=== PATIENT | male | born 1970 | race Caucasian/White ===

== ENCOUNTER → 2021-04-23 14:26 | Outpatient (CLI) | payer BC, SELFPAY ==
--- NOTE | 2021-04-23 14:32 | XR_ITS ---
PROCEDURE: XR ANKLE WT BEARING RT MIN 3V CLINICAL INDICATION: R Ankle Pain COMPARISON: No exams were available for comparison FINDINGS: There are osteoarthritic changes of the ankle with bony hypertrophy and subchondral cystic changes of the lateral and medial malleoli and medial aspect of the talus. Spurring is present involving the anterior distal tibia. Prominent calcaneal spur and Achilles enthesophyte noted as well as osteoarthritic changes of the talonavicular joint and navicular cuneiform joint. No acute fracture or dislocation. There is mild soft tissue swelling laterally. The talar dome has an unremarkable appearance. IMPRESSION: Degenerative changes, no acute finding Dictated by: Jf Lopez MD 04/23/2021 17:12 Jf Lopez MD in [place] 04/23/2021 17:12
== END ==
PROVIDERS: PCP Family Medicine; Visit Provider Nurse Practitioner Family
DX: M25.571 Pain in right ankle and joints of right foot (principal)
CPT/HCPCS: 73610